=== PATIENT | male | born 1990 | race Caucasian/White ===

== ENCOUNTER 2016-12-30 18:04 | Emergency (ER) | payer SELFPAY ==
[~2016-12-30] VITALS: Ht 167.6 cm; Wt 54.0 kg
[2016-12-30 18:10] VITALS: BP 147/65; PULSE 79; RESP 16; TEMP 98.4; O2SAT 98
--- NOTE | 2016-12-30 18:42 | PD ---
HPI Chief Complaint: Allergic/Adverse Reaction Time Seen by Provider: 18:26 Travel History International Travel<30 days: No Contact w/Intl Traveler<30days: No Traveled to known affect area: No History of Present Illness HPI 26-year-old male presents to emergency department with lesions inside his mouth for 1 day. States that he had a bump on his left cheek popped it and then developed other bumps on the underside of his tongue and mild swelling of the lips. Denies significant pain however they do bother him. He does not have fever, chills, shortness of breath, chest pain, or trouble breathing. Patient is concerned that this is a serious disease process and would like testing. States he has had a new girlfriend for about a week but does not know if she has similar symptoms. No recent travel, new foods, or oral rinses. Patient denies lesions anywhere else on his body. PFSH Past Medical History Cancer: No Cardiovascular Problems: No Diabetes: No Diminished Hearing: No Endocrine: No Gastrointestinal Disorders: No Genitourinary: No Hepatitis: No Hiatal Hernia: No Hypertension: No Immune Disorder: No Musculoskeletal: No Neurologic: No Psychiatric: No Reproductive: No Respiratory: No Immunizations Current: Yes Thyroid Disease: No Past Surgical History Body Medical Devices: [place] RT ANKLE Joint Replacement: No Oral Surgery: Yes ([place] teeth) Pacemaker: No Other Surgery: Yes Social History Alcohol Use: Yes Tobacco Use: Yes Substance Use: No Allergies-Medications (Allergen,Severity, Reaction): Coded Allergies: cefaclor (Unverified Allergy, Severe, Rash, 12/30/16) Reported Meds & Prescriptions Reported Meds & Active Scripts Active Magic Mouthwash Pediatric/Adult Liq (Lidocaine/Diphenhydr/Alum/Mg/Simeth) 60 Ml Susp 5 Ml SWISH-SPIT ACHS Each 5mL contains: Diphenydramine 4.5mg, Viscous Lidocaine 2% 10mg, Maalox Advanced Regular Strength 2.7ml Review of Systems Except as stated in HPI: all other systems reviewed are Neg Physical Exam Narrative GENERAL: Well-nourished, well-developed patient. SKIN: Focused skin assessment warm/dry. HEAD: Normocephalic. EYES: No scleral icterus. No injection or drainage. MOUTH: Mucous membranes moist, tongue and gums appear normal. Small for less than 1 mm papular ulcers sublingual area without exudate. NECK: Supple, trachea midline. No JVD or lymphadenopathy. CARDIOVASCULAR: Regular rate and rhythm without murmurs, gallops, or rubs. RESPIRATORY: Breath sounds equal bilaterally. No accessory muscle use. GASTROINTESTINAL: Abdomen soft, non-tender, nondistended. MUSCULOSKELETAL: No cyanosis, or edema. BACK: Nontender without obvious deformity. No CVA tenderness. Data Data Last Documented VS Vital Signs Date Time Temp Pulse Resp B/P (MAP) Pulse Ox O2 Delivery O2 Flow Rate FiO2 12/30/16 18:10 98.4 79 16 147/65 (92) 98 Orders Orders Ed Discharge Order (12/30/16 18:50) MDM Medical Decision Making Medical Screen Exam Complete: Yes Emergency Medical Condition: Yes Differential Diagnosis Cold Sores versus aphthous ulcers versus friction blister Narrative Course 26-year-old female presents to the emergency department for evaluation of sores in his mouth for 1 day. States he has a new partner and is concerned that she gave him something. The lesions started with a single cyst in his right cheek. He popped this lesion then developed other lesions into his mouth. States that they are annoying but not necessarily painful. Physical exam demonstrates multiple small ulcerated lesions in his mouth without exudate or fluctuance. No tenderness to palpation. History of physical are consistent with cold sores. I spent a significant amount of time counseling this patient on the pathophysiology of this disease process. Patient did want testing however, it was not appropriate in this setting. Magic mouthwash for symptom reduction. Advised patient to follow up with a primary care physician for further treatment and evaluation. Diagnosis Primary Impression: Cold sore Referrals: [facility] Additional Instructions: Follow-up with her primary care physician within 2 days. Use mouthwash as needed for discomfort of lesions. Scripts Czylxdehkqxbcfx-Dylpqrtuh-Adf-Alum-Simeth Liq (Magic Mouthwash Pediatric/Adult Liq) 60 Ml Susp 5 ML SWISH-SPIT ACHS for Mouth sores, #60 ML 0 Refills Each 5mL contains: Diphenydramine 4.5mg, Viscous Lidocaine 2% 10mg, Maalox Advanced Regular Strength 2.7ml Prov: Jasson Soto MD 12/30/16 Disposition: 01 DISCHARGE HOME Condition: Stable Nadya Hager Dec 30, 2016 18:42
[2016-12-30] MEDS ORDERED: MAGICPED SWISH-SPIT (18:49)
== END 2016-12-30 19:02 | disposition home or self-care (01) ==
LOC: PHEFT 18:04
DX: B00.1 Herpesviral vesicular dermatitis (principal); Z72.0 Tobacco use
CPT/HCPCS: 99283